=== PATIENT | male | born 1995 | race Caucasian/White ===

== ENCOUNTER 2020-03-11 00:05 | Emergency (ER) | payer OTHER ==
[2020-03-11] MEDS ORDERED: LIDOCAINE 2% MDV 20ML VIAL ONE (01:19)
[2020-03-11] MEDS ORDERED: LIDOCAINE 2% MDV 20ML VIAL As Ordered ONE (01:19)
== END 2020-03-11 01:55 | disposition home or self-care (01) ==
LOC: M ED 00:05
DX: S61.012A Laceration without foreign body of left thumb without damage to nail, initial encounter (principal); W26.0XXA Contact with knife, initial encounter; Y92.019 Unspecified place in single-family (private) house as the place of occurrence of the external cause